=== PATIENT | male | born 1965 | race Two or more races ===

== ENCOUNTER 2016-11-11 07:38 | Emergency (ER) | payer BC, OTHER ==
[2016-11-11 07:46] VITALS: BP 148/103
[2016-11-11] MEDS ORDERED: TETANUS/DIPHTHERIA/PERTUSSIS 0.5 ML SYRINGE IM ONE ×2 (07:53→07:55)
--- NOTE | 2016-11-11 07:54 | ED Physician Documentation ---
PD HPI UPPER EXT INJURY - Stated complaint Stated Complaint: R RING FINGER LAC - Chief complaint Chief Complaint: Laceration - History obtained from History obtained from: Patient - History of Present Illness Location: Right, Finger (ring) Where injury occurred: Home Timing - onset: How many minutes ago (just piccoloist.) Similar symptoms before: Has not had sx before - Additonal information Additional information: The patient is a 51-year-old male who cut the tip of his right ring finger on a mandolin while cooking at home just prior to arrival. He is right-hand dominant. He denies any other injuries. Last tetanus booster is unknown. Review of Systems Respiratory: denies: Dyspnea GI: denies: Nausea, Vomiting Skin: reports: Laceration (s) PD PAST MEDICAL HISTORY - Past Medical History Past Medical History: Yes Respiratory: Sleep apnea, CPAP use Psych: Depression - Past Surgical History Past Surgical History: Yes Ortho: Other - Present Medications Home Medications: Ambulatory Orders Medication Instructions Recorded Confirmed Venlafaxine ER [Effexor ER] 75 mg ORAL DAILY 06/04/15 11/11/16 - Allergies Allergies/Adverse Reactions: Allergies Allergy/AdvReac Type Severity Reaction Status Date / Time No Known Drug Allergies Allergy Verified 11/11/16 07:44 - Social History Does the pt smoke?: No Smoking Status: Never smoker Does the pt drink ETOH?: No Does the pt have substance abuse?: No - Immunizations Immunizations are current?: No Immunizations: TDAP >10years/unknown - POLST Patient has POLST: No PD ED PE NORMAL - Vitals Vital signs reviewed: Yes (hypertensive) - General General: Alert and oriented X 3, Well developed/nourished - HEENT HEENT: Atraumatic - Respiratory Respiratory: No respiratory distress - Derm Derm: No rash - Extremities Extremities: Other (There is a 1 cm flap type laceration at the tip of the right ring finger. There is no involvement of the nailbed or the DIP joint. Distal neurovascular is intact.) - Neuro Neuro: Alert and oriented X 3, No motor deficit, No sensory deficit Results - Vitals Vitals: Vital Signs - 24 hr 11/11/16 11/11/16 07:42 07:46 Temperature 36.8 C Heart Rate 74 Respiratory 18 Rate Blood Pressure 199/127 H 148/103 H O2 Saturation 95 Oxygen O2 Source Room air Procedures - Laceration (location) Right ring finger Length in cm: 1 Wound type: Flap, Clean Neurovascular status: Sensory intact, Motor intact, Vascular intact Anesthesia: Marcaine 0.25% Wound Preparation: Hibiclens, Wound explored, To the base. No: FB identified Skin layer closure: Nylon, Interrupted, Size #-0 - enter number (5), Sutures - enter # (4) Other: Patient tolerated well, No complications, Neurovascular intact, Dressing applied, Tetanus booster given Complexity: Simple PD MEDICAL DECISION MAKING - ED course Complexity details: considered differential, d/w patient ED course: The patient's presentation is significant for a 1 cm flap type laceration at the tip of his right ring finger. After instilling local anaesthetic using 0.25 % bupivacaine, the wound was irrigated, and repaired with 5-0 nylon simple sutures. Antibiotic ointment and gauze dressing was applied. A tetanus booster was administered. I discussed with the patient the expected course of healing, wound care, timing for suture removal, as well as potentially worrisome signs or symptoms that should prompt reevaluation in the emergency department. Departure - Departure Disposition: 01 Home, Self Care Clinical Impression: Finger laceration Qualifiers: Encounter type: initial encounter Qualified Code(s): S61.219A - Laceration without foreign body of unspecified finger without damage to nail, initial encounter Condition: Stable Instructions: ED Laceration Hand Follow-Up: POLA Burton [Provider Group] Comments: Keep the wound clean, and apply antibiotic ointment daily. You can use Tylenol or ibuprofen if needed for discomfort. Followup for suture removal in about 10 days. Return to the emergency department if you develop any sign of infection, or otherwise worsening symptoms. You had high blood pressure while in the emergency department today. It is common for people to experience high blood pressure in the emergency department , and it does not necessarily mean that you need to be on antihypertensives medication. However it is advisable for you to follow up with your primary physician within the next week or 2 to have your blood pressure rechecked.
[2016-11-11] MEDS ORDERED: BACITRACIN OINT TOP STA (08:17)
== END 2016-11-11 08:31 | disposition home or self-care (01) ==
LOC: ED 07:38
DX: S61.214A Laceration without foreign body of right ring finger without damage to nail, initial encounter (principal); W27.4XXA Contact with kitchen utensil, initial encounter; Y93.G3 Activity, cooking and baking; Y92.010 Kitchen of single-family (private) house as the place of occurrence of the external cause; R03.0 Elevated blood-pressure reading, without diagnosis of hypertension; G47.30 Sleep apnea, unspecified; Z23 Encounter for immunization
CPT/HCPCS: 12001; 90471; 99283

== ENCOUNTER 2017-01-16 07:53 | Emergency (ER) | payer BC, OTHER ==
[2017-01-16] MEDS ORDERED: SODIUM CHLORIDE FLUSH 0.9% 10 ML SYRINGE IVP ONE (08:09)
[2017-01-16 08:21] LABS: BASOPHILS # (AUTO) 0.1 10^3/uL (0.0-0.1); BASOPHILS % (AUTO) 1.3 %; EOSINOPHILS # (AUTO) 0.2 10^3/uL (0.0-0.7); EOSINOPHILS % (AUTO) 2.4 %; HCT - HEMATOCRIT 44.8 % (42.0-52.0); HGB - HEMOGLOBIN 15.5 g/dL (14.0-18.0); LYMPHOCYTES # (AUTO) 2.3 10^3/uL (1.5-3.5); LYMPHOCYTES % (AUTO) 22.7 %; MEAN CORPUSCULAR HEMOGLOBIN 31.1 pg (27.0-31.0); MEAN CORPUSCULAR HGB CONC 34.5 g/dL (32.0-36.0); MEAN CORPUSCULAR VOLUME 90.2 fL (80.0-94.0); MEAN PLATELET VOLUME 9.7 fL (7.4-11.4); MONOCYTES # (AUTO) 0.8 10^3/uL (0.0-1.0); MONOCYTES % (AUTO) 7.9 %; NEUTROPHILS # (AUTO) 6.7 10^3/uL (1.5-6.6); NEUTROPHILS % (AUTO) 65.7 %; RED BLOOD COUNT 4.97 10^6/uL (4.70-6.10); UNCORRECTED WHITE BLOOD COUNT 10.2 x10^3/uL; WHITE BLOOD COUNT 10.2 x10^3/uL (4.8-10.8)
[2017-01-16 08:32] LABS: ALBUMIN/GLOBULIN RATIO 1.2 (1.0-2.2); BILIRUBIN,TOTAL 0.4 mg/dL (0.2-1.0); CALCIUM 9.6 mg/dL (8.5-10.3); CREATININE 0.9 mg/dL (0.6-1.2); POTASSIUM 3.9 mmol/L (3.5-5.0); TOTAL PROTEIN 7.4 g/dL (6.7-8.2)
--- NOTE | 2017-01-16 08:38 | ED Physician Documentation ---
PD HPI CHEST PAIN - Stated complaint Stated Complaint: CHEST PAIN - Chief complaint Chief Complaint: Cardiac - History obtained from History obtained from: Patient - History of Present Illness Timing - onset: Enter time (629), Today Timing - onset during: Light activity Timing - duration: Minutes (30) Timing - details: Abrupt onset, Now resolved Quality: Sharp, Pain Location: Substernal Radiation: Jaw, Back Improved by: Nothing Worsened by: Other (nothing) Associated symptoms: Shortness of air, Feeling faint / dizzy. 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 He states the pain was enough to make him feel disoriented and short of breath and that this pain spontaneously resolved within about 30 minutes. 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 He does remember he has scrambled eggs and toast this morning and he does not remember what he ate with the previous episode. He denies other episodes. He has a family history of coronary disease in his mother who at 84. He has a history of hypertension he is not treated for lipid disorder.He is a non-smoker. Review of Systems Constitutional: denies: Fever, Chills, Myalgias, Fatigue Eyes: denies: Decreased vision Ears: denies: Ear pain Nose: denies: Rhinorrhea / runny nose, Congestion Throat: denies: Sore throat Cardiac: denies: Chest pain / pressure, Palpitations Respiratory: reports: Cough. denies: Dyspnea GI: denies: Abdominal Pain, Nausea, Vomiting, Constipation, Diarrhea : denies: Dysuria, Frequency Skin: denies: Rash Musculoskeletal: reports: Back pain, Extremity pain. denies: Neck pain Neurologic: denies: Generalized weakness, Focal weakness, Numbness PD PAST MEDICAL HISTORY - Past Medical History Past Medical History: Yes Cardiovascular: Hypertension Respiratory: Sleep apnea, CPAP use Psych: Depression - Past Surgical History Past Surgical History: Yes Ortho: Other - Present Medications Home Medications: Ambulatory Orders Medication Instructions Recorded Confirmed Venlafaxine ER [Effexor ER] 75 mg ORAL DAILY 06/04/15 11/11/16 - Allergies Allergies/Adverse Reactions: Allergies Allergy/AdvReac Type Severity Reaction Status Date / Time No Known Drug Allergies Allergy Verified 01/16/17 07:59 - Social History Does the pt smoke?: No Smoking Status: Never smoker Does the pt drink ETOH?: No Does the pt have substance abuse?: No - Family History Family history: reports: CAD - Immunizations Immunizations are current?: Yes Immunizations: TDAP >10years/unknown - POLST Patient has POLST: No PD ED PE NORMAL - Vitals Vital signs reviewed: Yes (Hypertensive) - General General: Alert and oriented X 3, No acute distress, Well developed/nourished - HEENT HEENT: Atraumatic, PERRL, EOMI, Other (Mild inflammation of the right TM with rounding of the umbo.) - Neck Neck: Supple, no meningeal sign, No bony TTP - Cardiac Cardiac: RRR, No murmur - Respiratory Respiratory: No respiratory distress, Clear bilaterally - Abdomen Abdomen: Soft, Non tender - Back Back: No CVA TTP, No spinal TTP - Derm Derm: Normal color, Warm and dry, No rash - Extremities Extremities: No deformity, No edema - Neuro Neuro: Alert and oriented X 3, No motor deficit, No sensory deficit, Normal speech - Psych Psych: Normal mood, Normal affect Results - Vitals Vitals: Vital Signs - 24 hr 01/16/17 01/16/17 07:57 08:25 Temperature 36.3 C L Heart Rate 89 83 Respiratory 20 21 Rate Blood Pressure 171/100 H 152/93 H O2 Saturation 96 96 Oxygen O2 Source Room air - EKG (time done) 0801 Rate: Rate (enter#) (93) Ischemia: Normal ST segments Other comments: Other comments (early transition) Compare to prior EKG: Old EKG unavailable Computer interpretation: Agree with computer - Labs Labs: Laboratory Tests 01/16/17 01/16/17 01/16/17 08:12 08:12 08:12 WBC 10.2 RBC 4.97 Hgb 15.5 Hct 44.8 MCV 90.2 MCH 31.1 H MCHC 34.5 RDW 14.0 Plt Count 172 MPV 9.7 Neut # 6.7 H Lymph # 2.3 [place] # 0.8 Eos # 0.2 Baso # 0.1 Absolute Nucleated RBC 0.00 Nucleated RBCs 0.0 Sodium 138 Potassium 3.9 Chloride 106 Carbon Dioxide 23 Anion Gap 9.0 BUN 18 Creatinine 0.9 Estimated GFR (MDRD) 90 Glucose 168 H Calcium 9.6 Total Bilirubin 0.4 AST 83 H ALT 110 H Alkaline Phosphatase 95 Troponin I < 0.04 Total Protein 7.4 Albumin 4.0 Globulin 3.4 Albumin/Globulin Ratio 1.2 Lipase 34 - Rads (name of study) 2 view chest Radiology: Prelim report reviewed (Impression: No consolidation evident.), EMP read indepedently, See rad report Gallbladder ultrasound Radiology: Prelim report reviewed (Impression: Hepatomegaly 21 cm with fatty infiltration. Common bile duct 4 mm cholelithiasis but no wall thickening or free fluid.Impression: Hepatomegaly 21 cm with fatty infiltration. Common bile duct 4 mm cholelithiasis but no wall thickening or free fluid.), EMP read indepedently (Looks like a large mobile stone.), See rad report Procedures - Bedside sono Bedside sono by EMP: With use of bedside ultrasound the gallbladder is imaged and there is an echogenic stone within the gallbladder the gallbladder wall is not thickened there is no pericholecystic fluid and there is no sonographic tenderness to the gallbladder. PD MEDICAL DECISION MAKING - ED course Complexity details: reviewed old records, reviewed results, re-evaluated patient , considered differential, d/w patient ED course: 51-year-old male with an episode of chest pain similar to what he had a month ago and a history consistent with Cholelithiasis with recurrent attacks.The patient is counseled regarding the natural history of cholelithiasis and we have asked him to follow-up with the surgeon. He does have a large stone and I am not terribly concerned about choledocholithiasis. He does not have evidence of cholecystitis today.He does have fatty infiltration of the liver consistent with overindulgence. Departure - Departure Disposition: 01 Home, Self Care Clinical Impression: Cholelithiasis Qualifiers: Cholelithiasis location: gallbladder Cholecystitis presence: without cholecystitis Biliary obstruction: without biliary obstruction Qualified Code(s) : K80.20 - Calculus of gallbladder without cholecystitis without obstruction Condition: Stable Instructions: ED Gallstone W Biliary Colic Follow-Up: SHASTA ALSTON [Primary Care Provider] - Ori House MD [Provider Admit Priv/Credential] -
--- NOTE | 2017-01-16 08:56 | XRAY Preliminary Report ---
Exam: XR Chest 2 View PA/LAT IMPRESSION: No consolidation evident. [id number]
--- NOTE | 2017-01-16 08:59 | XRAY Report ---
EXAM: CHEST RADIOGRAPHY EXAM DATE: 01/16/2017 08:42 AM. CLINICAL HISTORY: Chest pain . COMPARISON: Chest x-ray 06/04/2015. TECHNIQUE: 2 views. FINDINGS: Lungs/Pleura: No focal opacities evident. No pleural effusion. No pneumothorax. Normal volumes. Mediastinum: Heart and mediastinal contours are unremarkable. Other: Left glenoid fixation screw noted. IMPRESSION: No consolidation evident. [facility] Referring Provider Line: [phone] SITE ID: [id number]
[2017-01-16 10:11] VITALS: BP 145/93
--- NOTE | 2017-01-16 12:51 | Ultrasound Report ---
RIGHT UPPER QUADRANT ULTRASOUND: 01/16/2017 CLINICAL INDICATION: Pain. TECHNIQUE: Real-time scanning was performed with manufacturing sales representative static images obtained. FINDINGS: The liver is enlarged, measuring 21 cm, and demonstrates diffuse increase in echogenicity, compatible with fatty infiltration. No focal parenchymal lesion or intrahepatic biliary dilatation i s seen. The common bile duct measures 4 mm. The gallbladder contains a single mobile stone. No wall t hickening or pericholecystic fluid is seen. The right kidney measures 12.6 cm, and appears unremarkab le. No free fluid is present. IMPRESSION: CHOLELITHIASIS, BUT NO EVIDENCE OF ACUTE CHOLECYSTITIS. FATTY INFILTRATION OF THE LIVER. JOB #: [id number] EXT JOB #:
== END 2017-01-16 10:20 | disposition home or self-care (01) ==
LOC: ED 07:53
DX: K80.20 Calculus of gallbladder without cholecystitis without obstruction (principal); K76.0 Fatty (change of) liver, not elsewhere classified; I10 Essential (primary) hypertension; G47.30 Sleep apnea, unspecified
CPT/HCPCS: 36415; 71020; 76705; 80053; 83690; 84484; 85025; 93005; 99283; 99284